=== PATIENT | female | born 1940 | race African-American/Black ===

== ENCOUNTER 2016-05-30 16:59 | Emergency (ER) | payer OTHER ==
[2016-05-30 17:51] VITALS: BMI 28.8
--- NOTE | 2016-05-30 18:00 | PDOC ---
History of Present Illness - General History Source: Patient - History of Present Illness Initial Comments: 05/30/16 18:44 Patient is a 75-year-old female past medical history of hypertension, asthma, chronic right shoulder pain, pacemaker, presenting to the ED today complaining of dizziness and feeling like the room is spinning. Patient states that this began 2 days ago. She feels worse at night lying down. Nothing makes the dizziness better. She's tried taking meclizine at home with minimal relief. Patient states that she also has had cold-like symptoms the past week. Admits to runny nose cough congestion, nausea and ear fullness. Patient denies headache , lightheadedness, numbness and tingling. Triage patient states that her pulse and blood pressure elevated. Her blood pressure is currently 154/112 and her pulse rate is 114. She states she does have a history of hypertension and her usual blood pressure is 130/80. Patient states she had her flu shot this year. Patient denies chest pain palpitations vomiting diarrhea. <Kim Pendleton - Last Filed: 05/30/16 18:53> <Carrol Shepherd - Last Filed: 05/30/16 23:36> - General Chief Complaint: Lightheaded Stated Complaint: DIZZINESS Time Seen by Provider: 05/30/16 17:31 Past History - Past Medical History Cancer: Yes (right breast) Cardiac Disorders: Yes CVA: No Dementia: No Diabetes: Yes GI Disorders: No Disorders: No HTN: Yes Hypercholesterolemia: Yes Liver Disease: No Seizures: No Thyroid Disease: No - Surgical History Cardiac Surgery: Yes (pacemaker) - Immunization History Td Vaccination: No TDAP Vaccination: No Immunization Up to Date: Yes - Psycho/Social/Smoking Cessation Hx Anxiety: No Suicidal Ideation: No Smoking History: Never smoked Have you smoked in the past 12 months: No Hx Alcohol Use: No Drug/Substance Use Hx: No Substance Use Type: None Hx Substance Use Treatment: No <Kim Pendleton - Last Filed: 05/30/16 18:53> <Carrol Shepherd - Last Filed: 05/30/16 23:36> - Past Medical History Allergies/Adverse Reactions: Allergies Allergy/AdvReac Type Severity Reaction Status Date / Time No Known Drug Allergies Allergy Verified 05/30/16 17:31 Home Medications: Ambulatory Orders Montelukast Na [Singulair -] 10 mg PO HS 03/07/15 Simvastatin [Zocor -] 20 mg PO HS 03/07/15 Hydralazine HCl [Apresoline -] 10 mg PO TID #90 tablet 03/09/15 Nifedipine ER [Procardia XL -] 90 mg PO DAILY tab.er.24 03/09/15 Anastrozole [Arimidex -] 1 mg PO DAILY 05/30/16 Aspirin [ASA -] 81 mg PO DAILY 05/30/16 Calcium Carbonate/Vitamin D3 [Calcium 500 + Vit D Caplet] 1 each PO DAILY *Physical Exam - Vital Signs Last Vital Signs Temp Pulse Resp BP Pulse Ox 97.9 F 119 H 18 154/112 99 05/30/16 17:32 05/30/16 17:32 05/30/16 17:32 05/30/16 17:32 05/30/16 17:32 - Physical Exam Comments: 05/30/16 18:41 GENERAL: Well developed, well nourished. Awake and alert. No acute distress. HEENT: Normocephalic, atraumatic. PERRLA, EOMI. No conjunctival pallor. Sclera are non- icteric. Moist mucous membranes. Nasal congestion present with green mucous. Oropharynx is clear. Ajvier-Halpike subtlety noted on the left. Pt. feels more dizzy when she sits up after exam. NECK: Supple. Full ROM. No JVD. Carotid pulses 2+ and symmetric, without bruits. No thyromegaly. No lymphadenopathy. CARDIOVASCULAR: Pt. is tachycardic on exam. Regular rhythm. No murmurs, rubs, or gallops. Distal pulses are 2+ and symmetric. PULMONARY: No evidence of respiratory distress. Lungs clear to auscultation bilaterally. No wheezing, rales or rhonchi. ABDOMINAL: Soft. Non-tender. Non-distended. No rebound or guarding. No organomegaly. Normoactive bowel sounds. MUSCULOSKELETAL Normal range of motion at all joints. No bony deformities or tenderness. No CVA tenderness. EXTREMITIES: No cyanosis. No clubbing. No edema. No calf tenderness. SKIN: Warm and dry. Normal capillary refill. No rashes. No jaundice. NEUROLOGICAL: Alert, awake, appropriate. Cranial nerves 2-12 intact. No deficits to light touch and temperature in face, upper extremities and lower extremities. No motor deficits in the in face, upper extremities and lower extremities. Normoreflexic in the upper and lower extremities. Normal speech. Toes are down- going bilaterally. Gait is normal without ataxia. PSYCHIATRIC: Cooperative. Good eye contact. Appropriate mood and affect. <Kim Pendleton - Last Filed: 05/30/16 18:53> - Vital Signs Last Vital Signs Temp Pulse Resp BP Pulse Ox 98.0 F 91 H 19 163/85 100 05/30/16 23:09 05/30/16 23:09 05/30/16 23:09 05/30/16 23:09 05/30/16 23:09 <Carrol Shepherd - Last Filed: 05/30/16 23:36> ED Treatment Course - LABORATORY CBC & Chemistry Diagram: 05/30/16 18:46 05/30/16 18:46 - ADDITIONAL ORDERS Additional order review: Laboratory Results 05/30/16 05/30/16 05/30/16 18:46 18:46 18:46 Sodium 142 Potassium 4.1 Chloride 106 Carbon Dioxide 28 Anion Gap 8 BUN 12 Creatinine 1.0 Creat Clearance w eGFR 54.20 Random Glucose 94 Calcium 10.2 H Total Bilirubin 0.4 AST 19 ALT 20 Alkaline Phosphatase 140 H Creatine Kinase 57 Troponin I < 0.02 Total Protein 8.0 Albumin 4.0 Urine Color Lt. yellow Urine Appearance Clear Urine pH 7.0 Ur Specific [place] 1.010 Urine Protein Negative Urine Glucose (UA) Negative Urine Ketones Negative Urine Blood 1 H Urine Nitrite Negative Urine Bilirubin Negative Urine Urobilinogen 0.2 e.u/dl Ur Leukocyte Esterase Negative 05/30/16 18:46 RBC 4.75 MCV 86.8 MCHC 33.6 RDW 14.2 MPV 8.4 Neutrophils % 59.7 Lymphocytes % 31.7 Monocytes % 7.2 Eosinophils % 0.5 Basophils % 0.9 - RADIOLOGY Radiology Studies Ordered: Category Date Time Status HEAD CT WITHOUT CONTRAST [CT] Stat CT Scan 05/30/16 20:19 Completed - Medications Given in the ED: ED Medications Discontinued Medications Generic Name Dose Route Start Last Admin Trade Name Freq PRN Reason Stop Dose Admin Sodium Chloride 1,000 mls @ 1,000 mls/hr 05/30/16 18:39 05/30/16 19:03 Normal Saline - IV 05/30/16 19:38 1,000 mls/hr ASDIR STA Administration Meclizine HCl 25 mg 05/30/16 18:16 05/30/16 19:03 Antivert - PO 05/30/16 18:17 25 mg ONCE ONE Administration Ondansetron HCl 4 mg 05/30/16 18:51 05/30/16 19:03 Zofran Injection IVPUSH 05/30/16 18:52 4 mg ONCE ONE Administration <Carrol Shepherd D - Last Filed: 05/30/16 23:36> Medical Decision Making - Medical Decision Making 05/30/16 18:47 Patient is a 75-year-old female past medical history of hypertension, asthma, chronic right shoulder pain, pacemaker, presenting to the ED today with dizziness 2 days given patient's description of the symptoms it sounds that it is most likely vertigo. However given her complex medical history we will do full workup to rule out cardiac cause, infection, dehydration. We'll have her pacemaker interrogated at this time. First page out to [employer] Will also medicate for the dizziness with meclizine and Zofran. We'll start fluids her symptomatically relief. Reevaluate 1. CBC, CMP, for infection, hydration status 2. EKG, Troponins and Pacemaker interrogation to r/o cardiac origin. 3. Will give fludis, meclizine and zofran at this time for symptomatic relief. 4. Will re-evaluate. 05/30/16 18:53 Sign out given to Carrol Shepherd. Discussed pt. vitals and pt is stable at this time resting comfortably. Discussed the case. Labs are still pending with EKG. Waiting precision lens generator for [employer] for pacemaker interrogation. Must wait until pacemaker is interrogated before dispo. Symptomatic relief given, zofran and meclizine <Kim Pendleton - Last Filed: 05/30/16 18:53> - Medical Decision Making 05/30/16 23:34 HEAD-CT: WNL URINALYSIS: WNL D/C PATIENT TO HOME. <Carrol Shepherd - Last Filed: 05/30/16 23:36> *DC/Admit/Observation/Transfer <Kim Pendleton - Last Filed: 05/30/16 18:53> - Discharge Dispostion Admit: No <Carrol Shepherd - Last Filed: 05/30/16 23:36> Diagnosis at time of Disposition: Vertigo - Discharge Dispostion Disposition: HOME Condition at time of disposition: Stable - Patient Instructions Printed Discharge Instructions: DI for Vertigo, Vertigo (Alternative Therapy) Additional Instructions: FOLLOW UP WITH DR. RIVERA. CALL TO SCHEDULE APPOINTMENT. CONTINUE TAKING YOUR MEDICATIONS PRESCRIBED. RETURN IF SYMPTOMS WORSEN, OR ANY CONCERNS FOR FURTHER EVALUATION. Print Language: VIETNAMESE
[2016-05-30] MEDS ORDERED: MECLIZINE HCL 25 MG TABLET (FP) PO ONE (18:16)
[2016-05-30] MEDS ORDERED: ONDANSETRON *ODT* 4 MG TABLET SL ONE (18:16)
[2016-05-30] MEDS ORDERED: SODIUM CHLORIDE 1,000 ML IV STA (18:39)
[2016-05-30] MEDS ORDERED: ONDANSETRON 4 MG/2 ML VIAL ONE (18:48)
[2016-05-30] MEDS ORDERED: MECLIZINE HCL 25 MG TABLET (FP) ONE (18:48)
[2016-05-30] MEDS ORDERED: ONDANSETRON 4 MG/2 ML VIAL IVPUSH ONE (18:51)
[2016-05-30 19:28] LABS: BASOPHIL 0.9 % (0-2.0); EOSINOPHIL 0.5 % (0-4.5); MCH 29.2 pg (25.7-33.7); MCHC 33.6 g/dl (32.0-36.0); MEAN CELL VOLUME 86.8 fl (80-96); MEAN PLT VOLUME 8.4 fl (7.5-11.1); NEUTROPHILS 59.7 % (42.8-82.8); PLATELET COUNT 310 K/MM3 (134-434); RDW 14.2 % (11.6-15.6); WHITE BLOOD COUNT 6.8 K/mm3 (4.0-10.0)
[2016-05-30 19:45] LABS: BILIRUBIN,TOTAL 0.4 mg/dL (0.2-1.0); CALCIUM 10.2 mg/dL (8.5-10.1)
[2016-05-30 19:46] LABS: TROPONIN I < 0.02 ng/ml (0.00-0.05)
--- NOTE | 2016-05-30 21:11 | PDOC ---
[id number] 154/112 99 05/30/16 17:32 05/30/16 17:32 05/30/16 17:32 05/30/16 17:32 05/30/16 17:32 Heart Score/ECG Review #1 ECG reviewed & interpreted by me at: 17:45 05/30/16 20:59 NSR 101, 1st degree AV block, LVH, Q wave III, aVF, no std/mickey, QTC 440 msec ED Treatment Course - LABORATORY CBC & Chemistry Diagram: 05/30/16 18:46 05/30/16 18:46 - ADDITIONAL ORDERS Additional order review: Laboratory Results 05/30/16 05/30/16 18:46 18:46 Sodium 142 Potassium 4.1 Chloride 106 Carbon Dioxide 28 Anion Gap 8 BUN 12 Creatinine 1.0 Creat Clearance w eGFR 54.20 Random Glucose 94 Calcium 10.2 H Total Bilirubin 0.4 AST 19 ALT 20 Alkaline Phosphatase 140 H Creatine Kinase 57 Troponin I < 0.02 Total Protein 8.0 Albumin 4.0 05/30/16 18:46 RBC 4.75 MCV 86.8 MCHC 33.6 RDW 14.2 MPV 8.4 Neutrophils % 59.7 Lymphocytes % 31.7 Monocytes % 7.2 Eosinophils % 0.5 Basophils % 0.9 - Medications Given in the ED: ED Medications Discontinued Medications Generic Name Dose Route Start Last Admin Trade Name Freq PRN Reason Stop Dose Admin Sodium Chloride 1,000 mls @ 1,000 mls/hr 05/30/16 18:39 05/30/16 19:03 Normal Saline - IV 05/30/16 19:38 1,000 mls/hr ASDIR STA Administration Meclizine HCl 25 mg 05/30/16 18:16 05/30/16 19:03 Antivert - PO 05/30/16 18:17 25 mg ONCE ONE Administration Ondansetron HCl 4 mg 05/30/16 18:51 05/30/16 19:03 Zofran Injection IVPUSH 05/30/16 18:52 4 mg ONCE ONE Administration Medical Decision Making - Medical Decision Making 05/30/16 20:59 Pt seen by the Advanced Practice Provider under my direct supervision Pt interviewed and examined Ancillary studies reviewed I agree with plan as outlined by the Advanced Practice Provider ODALIS Pendleton This is a 75-year-old female with history of hypertension, pacemaker presents to the emergency department for dizziness. Patient reports the last several days of having upper respiratory infection-like symptoms which is now improved. However, 3 days ago, patient does report feeling somewhat lightheaded and dizzy upon standing up. Denies any chest pain or shortness of breath or palpitations. Denies any dysuria, fevers or sick contacts. Patient reports that she feels like this is somewhat like her vertigo. Given cardiac history, will observe on manager cardiac cath. ECG is stable and unchanged. I suspect that this is probably less cardiac in etiology, but will send labs including trop. Perhaps this may be more dehydration from her recent URI. Will give IVF and meclizine and reassess. Will also send a UA. If the workup is unremarkable, the patient may be discharged with PMD follow up. 05/30/16 21:21 When I had seen the patient initially earlier approximately 4 hours ago, the patient was feeling lightheaded. After the IVF and meds, the patient reports feeling complete relief. *DC/Admit/Observation/Transfer Diagnosis at time of Disposition: Vertigo - Discharge Dispostion Disposition: HOME Condition at time of disposition: Stable - Prescriptions Prescriptions: Meclizine HCl [Antivert -] 25 mg PO BID PRN #30 tablet PRN Reason: Vertigo - Referrals Referrals: Carlos Eduardo Concepcion MD [Primary Care Provider] - - Patient Instructions Printed Discharge Instructions: Vertigo (Alternative Therapy), DI for Vertigo Additional Instructions: FOLLOW UP WITH DR. CONCEPCION. CALL TO SCHEDULE APPOINTMENT. CONTINUE TAKING YOUR MEDICATIONS PRESCRIBED. RETURN IF SYMPTOMS WORSEN, OR ANY CONCERNS FOR FURTHER EVALUATION. Print Language: PUERTO RICAN
[2016-05-30 23:10] VITALS: BP 163/85; PULSE 91; TEMP 98
[2016-05-30 23:13] LABS: URINE APPEARANCE CLEAR; URINE BILIRUBIN NEGATIVE (NEGATIVE); URINE BLOOD 1 (NEGATIVE); URINE COLOR LT. YELLOW; URINE GLUCOSE (UA) NEGATIVE (NEGATIVE); URINE KETONE NEGATIVE (NEGATIVE); URINE LEUK ESTERASE NEGATIVE (NEGATIVE); URINE NITRITE NEGATIVE (NEGATIVE); URINE PROTEIN NEGATIVE (NEGATIVE); URINE UROBILINOGEN 0.2 E.U/dl E.U./dl (0.2-1.0)
[2016-05-31 00:09] LABS: URINE RBC 1 /hpf (0-3); URINE WBC 1 /hpf (3-5)
--- NOTE | 2016-05-31 16:08 | EKG ---
Test Reason : Blood Pressure : / mmHG Vent. Rate : 101 BPM Atrial Rate : 101 BPM P-R Int : 202 ms QRS Dur : 084 ms QT Int : 340 ms P-R-T Axes : 057 004 019 degrees QTc Int : 440 ms SINUS TACHYCARDIA BIATRIAL ENLARGEMENT LEFT VENTRICULAR HYPERTROPHY INFERIOR INFARCT (CITED ON OR BEFORE 16-JUN-2013) ABNORMAL ECG WHEN COMPARED WITH ECG OF 19-JAN-2016 09:26, NO SIGNIFICANT CHANGE WAS FOUND Confirmed by TALAT WILLARD MD ([id number]) on 05/31/2016 4:08:11 PM Referred By: Confirmed By:TALAT WILLARD MD
== END 2016-05-31 | disposition home or self-care (01) ==
LOC: JER 16:59
PROC: 3E033GC Introduction of Other Therapeutic Substance into Peripheral Vein, Percutaneous Approach (ICD-10-PCS; principal; 2016-05-30)
PROC: 3E0337Z Introduction of Electrolytic and Water Balance Substance into Peripheral Vein, Percutaneous Approach (ICD-10-PCS; 2016-05-30)
DX: R42 Dizziness and giddiness (principal); Z95.0 Presence of cardiac pacemaker; I10 Essential (primary) hypertension; J45.909 Unspecified asthma, uncomplicated; G89.29 Other chronic pain
CPT/HCPCS: 36415; 70450-TC; 80053; 81003; 81015; 82550; 84484; 85025; 87086; 93005; 93010; 96361; 96374; 99284-25

== ENCOUNTER → 2018-10-02 | Day surgery (SDC) | payer OTHER ==
--- NOTE | 2018-10-03 14:00 | PATH ---
Cytology Non-Gynecological Report Patient Name: JOEL RICE Med. Rec. #: [id number] /Age/Gender: 1940 (Age: 78) / F Account: [id number] Location: RADIOLOGY INTER Taken: 10/02/2018 Received: 10/03/2018 Reported: 10/03/2018 Physicians: Renu Lane M.D. Specimen(s) Received THYROID FNA Clinical History Left lobe, 1.43 x 1.05 x 0.59 Final Diagnosis THYROID, LEFT LOBE, FINE NEEDLE ASPIRATION: SATISFACTORY FOR EVALUATION. BETHESDA III: ATYPIA OF UNDERTERMINED SIGNIFICANCE/FOLLICULAR LESION OF UNDETERMINED SIGNIFICANCE. ATYPICAL FOLLICULAR CELLS WITH MILD NUCLEAR ENLARGEMENT AND FOCAL CROWDING, DISPERSED RARE SMALL FRAGMENTS AND FEW MICROFOLLICLES IN HEMORRHAGIC BACKGROUND. Comment: Suggest clinical/radiologic correlation and repeat sampling after an appropriate interval (3-6 months) with material for molecular studies (Thyroseq), as clinically warranted. Electronically Signed Afia Arguelles M.D. Gross Description Received are eight direct smears, four of which are air-dried and Diff-Quik stained, and four of which are alcohol fixed and Pap stained. Also received is 30 ml of bloody formalin from which one cellblock is prepared.
== END | disposition home or self-care (01) ==
LOC: JRADIR 08:41
PROVIDERS: ATTEND Family Medicine
PROC: 0G9K3ZX Drainage of Thyroid Gland, Percutaneous Approach, Diagnostic (ICD-10-PCS; principal; 2018-10-02)
DX: E04.1 Nontoxic single thyroid nodule (principal)
CPT/HCPCS: 76942; 88173; 88305-TC

== ENCOUNTER 2019-03-17 15:09 | Observation (INO) | payer OTHER ==
--- NOTE | 2019-03-17 15:42 | PDOC ---
History of Present Illness - General Chief Complaint: Chest Pain Stated Complaint: CHEST PAIN Time Seen by Provider: 03/17/19 15:42 History Source: Patient Exam Limitations: No Limitations - History of Present Illness Initial Comments: 03/17/19 16:44 Jammie Muro is a 78yF w PMHx HTN, HLD, pacemaker ([employer]) presenting w L chest pain. Last night, noted sudden onset 1 sec L breast pain while laying down. 2 episodes yesterday, 4 episodes today. Has never been shocked before, unsure if pain is d/t pacemaker shock. Follows regularly w Dr Gallego cardiology. Takes daily aspirin. Denies recent travel. Denies fever , headache, nausea/vomiting, SOB, cough, AB pain, urinary/bowel movement changes , LE edema. Past History - Past Medical History Allergies/Adverse Reactions: Allergies Allergy/AdvReac Type Severity Reaction Status Date / Time No Known Drug Allergies Allergy Verified 03/17/19 15:25 Home Medications: Ambulatory Orders Montelukast Na [Singulair -] 10 mg PO HS 03/07/15 Simvastatin [Zocor -] 20 mg PO HS 03/07/15 Nifedipine ER [Procardia XL -] 90 mg PO DAILY tab.er.24 03/09/15 hydrALAZINE HCL [Apresoline -] 10 mg PO TID #90 tablet 03/09/15 Anastrozole [Arimidex -] 1 mg PO DAILY 05/30/16 Aspirin [ASA -] 81 mg PO DAILY 05/30/16 Calcium Carbonate/Vitamin D3 [Calcium 500 + Vit D Caplet] 1 each PO DAILY Cancer: Yes (right breast) Cardiac Disorders: Yes CVA: No COPD: No Dementia: No Diabetes: Yes GI Disorders: No Disorders: No HTN: Yes Hypercholesterolemia: Yes Liver Disease: No Seizures: No Thyroid Disease: No - Surgical History Cardiac Surgery: Yes (pacemaker) - Immunization History Td Vaccination: No TDAP Vaccination: No Immunization Up to Date: Yes - Psycho Social/Smoking Cessation Hx Smoking History: Unknown if ever smoked Have you smoked in the past 12 months: No Hx Alcohol Use: No Drug/Substance Use Hx: No Substance Use Type: None Hx Substance Use Treatment: No Cardiac Specific PMH - Complaint Specific PMHX Pacemaker: Yes (2014) Review of Systems - Review of Systems Constitutional: No: Chills, Fever HEENTM: No: Eye Pain, Nose Pain, Throat Pain, Mouth Pain Respiratory: No: Cough, Shortness of Breath Cardiac (ROS): Yes: Chest Pain. No: Palpitations, Syncope ABD/GI: No: Abdominal Distended, Constipated, Diarrhea, Nausea, Vomiting : No: Burning, Dysuria, Discharge, Frequency, Flank Pain, Hematuria Musculoskeletal: No: Back Pain, Joint Pain, Joint Swelling, Muscle Pain Integumentary: No: Bruising, Dryness, Erythema Neurological: No: Headache, Numbness, Seizure, Tingling, Tremors Psychiatric: No: Anxiety, Depression, Stressors Endocrine: No: Excessive Sweating, Flushing, Intolerance to Cold, Intolerance to Heat Hematologic/Lymphatic: No: Anemia, Blood Clots *Physical Exam - Vital Signs Last Vital Signs Temp Pulse Resp BP Pulse Ox 97.8 F 98 H 18 153/90 99 03/18/19 09:00 03/18/19 09:00 03/18/19 09:00 03/18/19 09:00 03/18/19 12:00 - Physical Exam General Appearance: Yes: Nourished, Appropriately Dressed HEENT: positive: EOMI, RAMY, Normal Voice, Hearing Grossly Normal. negative: Scleral Icterus (R), Scleral Icterus (L), Nasal Congestion, Rhinorrhea Respiratory/Chest: positive: Lungs Clear, Normal Breath Sounds. negative: Chest Tender, Respiratory Distress, Accessory Muscle Use, Labored Respiration, Crackles, Rales, Rhonchi, Stridor, Wheezing Cardiovascular: positive: Regular Rate, S1, S2, Tachycardia. negative: Edema, Murmur Integumentary: positive: Normal Color. negative: Swelling (no BLE edema) Neurologic: positive: head of digital II-XII NML intact, Fully Oriented, Alert, Normal Mood/ Affect, Normal Response, Motor Strength 5/5, Responsive. negative: Numbness, Sensory Deficit, Confused, Disoriented Heart Score/ECG Review - History History: Slightly suspicious - Electrocardiogram EKG: Normal - Age Age: >/= 65 - Risk Factors Risk Factors Heart Score: Yes Hx Hypercholesterolemia, Yes Hx Hypertension, No Hx Diabetes, No Smoking History, No Positive family hx of cardiac disease, No Hx Obesity Based on the list above the patient has:: 1-2 risk factors - Troponin Troponin: </= normal limit - Score Heart Score - Total: 3 ED Treatment Course - LABORATORY CBC & Chemistry Diagram: 03/18/19 05:41 03/18/19 05:41 - ADDITIONAL ORDERS Additional order review: 03/17/19 16:10 RBC 4.62 MCV 85.0 MCHC 34.4 RDW 14.1 MPV 8.4 Neutrophils % 66.7 Lymphocytes % 22.5 D Monocytes % 9.4 Eosinophils % 0.6 Basophils % 0.8 - RADIOLOGY Radiology Studies Ordered: Category Date Time Status CXRPORT [CHEST X-RAY PORTABLE*] [RAD] Stat Radiology 03/17/19 16:06 Completed - Medications Given in the ED: ED Medications Discontinued Medications Generic Name Dose Route Start Last Admin Trade Name Freq PRN Reason Stop Dose Admin Anastrozole 1 mg 03/18/19 10:00 03/18/19 10:52 Arimidex - PO 1 mg DAILY LINDA Administration Aspirin 162 mg 03/17/19 17:21 03/17/19 17:38 Asa - PO 03/17/19 17:22 162 mg ONCE ONE Administration Aspirin 81 mg 03/18/19 10:00 03/18/19 09:43 Asa - PO 81 mg DAILY LINDA Administration Atorvastatin Calcium 10 mg 03/17/19 22:00 03/17/19 21:17 Lipitor - PO 10 mg HS LINDA Administration Diphenhydramine HCl 25 mg 03/17/19 21:10 03/17/19 21:18 Benadryl - PO 03/17/19 21:11 25 mg ONCE ONE Administration Hydralazine HCl 10 mg 03/17/19 22:00 03/18/19 14:04 Apresoline - PO 10 mg TID LINDA Administration Montelukast Sodium 10 mg 03/17/19 22:00 03/17/19 22:29 Singulair - PO 10 mg HS LINDA Administration Nifedipine 90 mg 03/18/19 10:00 03/18/19 09:43 Procardia Xl - PO 90 mg DAILY LINDA Administration Potassium Chloride 40 meq 03/18/19 11:00 03/18/19 14:04 K-Dur - PO 03/18/19 11:01 40 meq ONCE ONE Administration Medical Decision Making - Medical Decision Making 03/17/19 16:19 CBC CMP trop CXR shows clear lung carey, pacemaker in place EKG showed tachycardia, 1st degree AV block, LVH, HR 107, QTc 453, no ST changes [employer] device interrogated. Showed no recorded events and 0% pacing over last 72hrs, no pacing from Nov 27 to Mar 17 (today), normal device functioning. CBC CMP normal, trop neg --- Jammie Muro is a 78yF w PMHx HTN, HLD, pacemaker ([employer]) presenting w L chest pain likely d/t MSK strain. Low concern for ACS (neg trop) vs PNA (clear lung carey, afebrile, no cough) vs pacemaker shock (normal device interrogation check). Given 162 aspirin. Admitted to tele/obvs for chest pain at rest / ACS rule out in setting of complex cardiac hx, pacemaker Discharge - Discharge Information Problems reviewed: Yes Clinical Impression/Diagnosis: Chest pain at rest Condition: Stable Disposition: HOME - Follow up/Referral - Patient Discharge Instructions - Post Discharge Activity
[2019-03-17 16:34] LABS: BASO % 0.8 % (0-2.0); EOS % 0.6 % (0-4.5); HEMATOCRIT 39.2 % (32.4-45.2); HEMOGLOBIN 13.5 GM/dL (10.7-15.3); LYMPH % 22.5 % (8-40); MCH 29.3 pg (25.7-33.7); MCHC 34.4 g/dl (32.0-36.0); MEAN PLT VOLUME 8.4 fl (7.5-11.1); MONO % 9.4 % (3.8-10.2); NEUT % 66.7 % (42.8-82.8); PLATELET COUNT 353 K/MM3 (134-434); RBC 4.62 M/mm3 (3.60-5.2); RDW 14.1 % (11.6-15.6); WHITE BLOOD COUNT 7.7 K/mm3 (4.0-10.0)
[2019-03-17 17:09] LABS: BILIRUBIN,TOTAL 0.3 mg/dL (0.2-1); BLOOD UREA NITROGEN 25.1 mg/dL (7-18); CALCIUM 11.3 mg/dL (8.5-10.1); CREATININE 1.1 mg/dL (0.55-1.3); POTASSIUM 3.8 mmol/L (3.5-5.1); TOT PROT 8.4 g/dl (6.4-8.2)
[2019-03-17] MEDS ORDERED: ASPIRIN 81 MG CHEWABLE TABLETS PO ONE (17:21)
[2019-03-17] MEDS ORDERED: ASPIRIN 81 MG CHEWABLE TABLETS ONE (17:33)
--- NOTE | 2019-03-17 18:29 | PDOC ---
Documentation entered by Jeramy Paredes SCRIBE, acting as scribe for Betzy Donaldson MD. Betzy Donaldson MD: This documentation has been prepared by the Reggie munson Xhesika, SCRIBE, under my direction and personally reviewed by me in its entirety. I confirm that the documentation accurately reflects all work, treatment, procedures, and medical decision making performed by me. Attending Attestation - Resident Resident Name: Corey Mathew - ED Attending Attestation I have performed the following: I have examined & evaluated the patient, The case was reviewed & discussed with the resident, I agree w/resident's findings & plan, Exceptions are as noted - HPI HPI: 03/17/19 17:19 The patient is a 78 year old female with a significant PMH of HTN, HLD, pacemaker ([employer]) who presents to the emergency department for intermittent, sharp L sided chest pain, described as pinching sensation that started yesterday at rest. Pt reports 3 episodes of nausea without vomiting yesterday that has since resolved. Pt reports 1 week of congestion. The patient denies palpitations, shortness of breath, headache and dizziness. Denies fever, chills, cough, vomiting, diarrhea and constipation. Denies dysuria, frequency, urgency and hematuria. Allergies: NKDA PCP: Dr. Almodovar Cards: - Physicial Exam PE: 03/17/19 18:27 78-year-old female presents after 1 day of left-sided chest pain Well nourished well-developed alert 78-year-old female in no acute distress Head normocephalic atraumatic Neck is supple with no bruits or JVD appreciated Lungs are clear to auscultation bilaterally CVS regular rate and rhythm S1-S2 Abdomen nontender Skin warm and dry Lower extremities no edema Neuro alert and oriented x3, no focal neuro deficits - Medical Decision Making 03/17/19 18:29 Negative troponin Chest x-ray no acute pulmonary disease CBC chemistries are essentially within normal limits Telemetry OBS admission for chest pain Using the [employer] kit in the emergency department her pacemaker was interrogated and no significant abnormalities were found
--- NOTE | 2019-03-17 19:13 | CON.CARD ---
Consult Consult Specialty:: Cardiology Reason for Consultation:: chest pain - History of Present Illness History of Present Illness: The patient is a 78 year old female with a significant PMH of HTN, HLD, pacemaker ([employer]) who presents to the emergency department for intermittent, sharp L sided chest pain, described as pinching sensation that started yesterday at rest. Pt reports 3 episodes of nausea without vomiting yesterday that has since resolved. Pt reports 1 week of congestion. The patient denies palpitations, shortness of breath, headache and dizziness. Denies fever, chills, cough, vomiting, diarrhea and constipation. Denies dysuria, frequency, urgency and hematuria. Allergies: NKDA PCP: Dr. Almodovar Cards: Past medical history Major events No major events recorded Ongoing medical problems Hyperlipidemia Hypertension PPM DDD [employer] 2014 Dr. Jensen pulmonic regurgitation (ECHO 05/12/2014: normal LVEF; moderate [place]) Right Breast CA symptomatic junctional bradycardia 8 seconds pause more than 24 hrs after last dose of atenolol [address] September 2018 - no ischemia - History Source History Provided By: Patient, Medical Record - Past Medical History Cardio/Vascular: Yes: HTN, Hyperlipdemia. No: AFIB, Aneurysm, Aortic Insufficiency, Aortic Stenosis, CAD, CHF, Deep Vein Thrombosis, [place], Mitral Insufficiency, Mitral Stenosis, Murmur, Pulmonary Hypertension, Other - Alcohol/Substance Use Hx Alcohol Use: No - Smoking History Smoking history: Unknown if ever smoked Have you smoked in the past 12 months: No Home Medications - Allergies Allergies/Adverse Reactions: Allergies Allergy/AdvReac Type Severity Reaction Status Date / Time No Known Drug Allergies Allergy Verified 03/17/19 15:25 - Home Medications Home Medications: Ambulatory Orders Montelukast Na [Singulair -] 10 mg PO HS 03/07/15 Simvastatin [Zocor -] 20 mg PO HS 03/07/15 Nifedipine ER [Procardia XL -] 90 mg PO DAILY tab.er.24 03/09/15 hydrALAZINE HCL [Apresoline -] 10 mg PO TID #90 tablet 03/09/15 Anastrozole [Arimidex -] 1 mg PO DAILY 05/30/16 Aspirin [ASA -] 81 mg PO DAILY 05/30/16 Calcium Carbonate/Vitamin D3 [Calcium 500 + Vit D Caplet] 1 each PO DAILY Review of Systems - Review of Systems Constitutional: reports: No Symptoms Eyes: reports: No Symptoms HENT: reports: No Symptoms Neck: reports: No Symptoms Cardiovascular: reports: Chest Pain Respiratory: reports: No Symptoms Gastrointestinal: reports: No Symptoms Genitourinary: reports: No Symptoms Breasts: reports: No Symptoms Reported Musculoskeletal: reports: No Symptoms Integumentary: reports: No Symptoms Neurological: reports: No Symptoms Endocrine: reports: No Symptoms Hematology/Lymphatic: reports: No Symptoms Psychiatric: reports: No Symptoms Vital Signs: Vital Signs Temperature 98.5 F 03/17/19 15:28 Pulse Rate 111 H 03/17/19 15:30 Respiratory Rate 18 03/17/19 15:30 Blood Pressure 148/100 03/17/19 15:30 O2 Sat by Pulse Oximetry (%) 99 03/17/19 15:30 Constitutional: Yes: Well Nourished, No Distress, Calm Eyes: Yes: WNL, Conjunctiva Clear, EOM Intact HENT: Yes: WNL, Atraumatic, Normocephalic Neck: Yes: WNL, Supple, Trachea Midline Respiratory: Yes: WNL, Regular, CTA Bilaterally Gastrointestinal: Yes: WNL, Normal Bowel Sounds Renal/: Yes: WNL Cardiovascular: Yes: WNL, Regular Rate and Rhythm Musculoskeletal: Yes: WNL Extremities: Yes: WNL Integumentary: Yes: WNL Neurological: Yes: WNL, Alert, Oriented ...Motor Strength: WNL Psychiatric: Yes: WNL, Alert, Oriented - Other Data Labs, Other Data: CBC, BMP 03/17/19 16:10 03/17/19 16:10 Troponin, BNP 03/17/19 16:10 Troponin I < 0.02 Troponin, BNP 03/17/19 16:10 Troponin I < 0.02 Imaging - Results Chest X-ray: Image Reviewed (no i/e) EKG: Image Reviewed (sr rep abn) Problem List - Problems (1) Acute kidney failure Code(s): N17.9 - ACUTE KIDNEY FAILURE, UNSPECIFIED (2) Arthritis Code(s): M19.90 - UNSPECIFIED OSTEOARTHRITIS, UNSPECIFIED SITE (3) Bone spur Code(s): M77.9 - ENTHESOPATHY, UNSPECIFIED (4) Dizziness Code(s): R42 - DIZZINESS AND GIDDINESS (5) HTN (hypertension) Code(s): I10 - ESSENTIAL (PRIMARY) HYPERTENSION (6) Hyperglycemia Code(s): R73.9 - HYPERGLYCEMIA, UNSPECIFIED (7) Hyperlipidemia Code(s): E78.5 - HYPERLIPIDEMIA, UNSPECIFIED (8) Junctional bradycardia Code(s): R00.1 - BRADYCARDIA, UNSPECIFIED (9) Shoulder pain, right Code(s): M25.511 - PAIN IN RIGHT SHOULDER Qualifiers: Chronicity: chronic Qualified Code(s): M25.511 - Pain in right shoulder; G89.29 - Other chronic pain (10) Vertigo Code(s): R42 - DIZZINESS AND GIDDINESS Assessment/Plan HTN, HLD, pacemaker ([employer]) who presents to the emergency department for intermittent, sharp L sided chest pain, described as pinching sensation Plan r/o mi echo telemetry
--- NOTE | 2019-03-17 20:09 | HP ---
CHIEF COMPLAINT: intermittent chest pain since yesterday PCP:Dr. Carrasco Cigarette Stamper: Dr. Doss HISTORY OF PRESENT ILLNESS: Mr. Muro is a 78 year old female with a significant past medical history of hypertension, hyperlipidemia, pacemaker placement in 2015 ([employer]) for bradycardia and right breast lumpectomy (on hormonal therapy) in 2016 who presents to the emergency department with intermittent left sided chest pain, described as pinching sensation that started yesterday at rest. Patient reported nausea without vomiting that has resolved. She reports she had ongoing intermittent chest pain today lasting a few seconds while she was sitting and decided to come in for an evaluation. Patient denied radiation to her left arm, jaw, neck, shoulder, palpitations, shortness of breath, back pain, headache or dizziness. Patient denied recent travel. Upon evaluation systolic blood pressure is elevated in the 160's and she is tachycardic with heart rate in the 100's . Labs noted for a normal troponin. CXR unremarkable. Calcium level 11.3. D-Dimer 992 EKG- sinus tachycardia, LVH, no acute ST elevations or T wave inversions Cardiac History: [employer] Pacemaker 2015 for bradycardia ECHO 05/12/2014: normal LVEF, moderate [place] [facility] September 2018 - no ischemia Recent Travel: denies PAST MEDICAL HISTORY: hypertension hyperlipidemia PAST SURGICAL HISTORY: right breast lumpectomy 2016 pacemaker placement 2014 Social History: Smoking:denies Alcohol:denies Drugs: denies Allergies No Known Drug Allergies Allergy (Verified 03/17/19 15:25) HOME MEDICATIONS: Home Medications Medication Instructions Recorded Montelukast Na [Singulair -] 10 mg PO HS 03/07/15 Simvastatin [Zocor -] 20 mg PO HS 03/07/15 Nifedipine ER [Procardia XL -] 90 mg PO DAILY tab.er.24 03/09/15 hydrALAZINE HCL [Apresoline -] 10 mg PO TID #90 tablet 03/09/15 Anastrozole [Arimidex -] 1 mg PO DAILY 05/30/16 Aspirin [ASA -] 81 mg PO DAILY 05/30/16 Calcium Carbonate/Vitamin D3 1 each PO DAILY 05/30/16 [Calcium 500 + Vit D Caplet] REVIEW OF SYSTEMS CONSTITUTIONAL: Absent: fever, chills, diaphoresis, generalized weakness, malaise, loss of appetite, weight change HEENT: Absent: rhinorrhea, nasal congestion, throat pain, throat swelling, difficulty swallowing, mouth swelling, ear pain, eye pain, visual changes CARDIOVASCULAR: Absent: chest pain, syncope, palpitations, irregular heart rate, lightheadedness , peripheral edema RESPIRATORY: Absent: cough, shortness of breath, dyspnea with exertion, orthopnea, wheezing, stridor, hemoptysis GASTROINTESTINAL: Absent: abdominal pain, abdominal distension, nausea, vomiting, diarrhea, constipation, melena, hematochezia GENITOURINARY: Absent: dysuria, frequency, urgency, hesitancy, hematuria, flank pain, genital pain MUSCULOSKELETAL: Absent: myalgia, arthralgia, joint swelling, back pain, neck pain SKIN: Absent: rash, itching, pallor HEMATOLOGIC/IMMUNOLOGIC: Absent: easy bleeding, easy bruising, lymphadenopathy, frequent infections ENDOCRINE: Absent: unexplained weight gain, unexplained weight loss, heat intolerance, cold intolerance NEUROLOGIC: Absent: headache, focal weakness or paresthesias, dizziness, unsteady gait, seizure, mental status changes, bladder or bowel incontinence PSYCHIATRIC: Absent: anxiety, depression, suicidal or homicidal ideation, hallucinations. PHYSICAL EXAMINATION Vital Signs - 24 hr 03/17/19 03/17/19 03/17/19 15:28 15:30 19:21 Temperature 98.5 F Pulse Rate 111 H Pulse Rate [ 111 H 103 H Apical] Respiratory 20 18 17 Rate Blood Pressure 155/85 Blood Pressure 148/100 161/93 [Right Arm] O2 Sat by Pulse 99 99 99 Oximetry (%) GENERAL: awake alert and fully oriented no acute distress HEAD: normal EYES: pupils equal round and reactive to light extraocular movements intact EARS, NOSE, THROAT: ears normal nares patent NECK: normal range of motion LUNGS: breath sounds equal clear to auscultation bilaterally no wheeze no crackles no accessory muscle use HEART: rate tachycardic and rhythm normal S1 and S2 ABDOMEN: soft nontender not distended normoactive bowel sounds MUSCULOSKELETAL: normal range of motion at all joints UPPER EXTREMITIES: 2+ pulses warm well-perfused LOWER EXTREMITIES: 2+ pulses warm on palpation minimal lower extremity edema present NEUROLOGICAL: no neuro focal deficits PSYCHIATRIC: cooperative good eye contact appropriate mood and affect SKIN: warm dry normal turgor no rashes or lesions noted normal capillary refill. Laboratory Results - last 24 hr 03/17/19 03/17/19 03/17/19 16:10 16:10 16:10 WBC 7.7 RBC 4.62 Hgb 13.5 Hct 39.2 MCV 85.0 MCH 29.3 MCHC 34.4 RDW 14.1 Plt Count 353 MPV 8.4 Absolute Neuts (auto) 5.2 Neutrophils % 66.7 Lymphocytes % 22.5 D Monocytes % 9.4 Eosinophils % 0.6 Basophils % 0.8 Nucleated RBC % 0 Sodium 137 Potassium 3.8 Chloride 101 Carbon Dioxide 27 Anion Gap 10 BUN 25.1 H Creatinine 1.1 Est GFR (CKD-EPI)AfAm 56.08 Est GFR (CKD-EPI)NonAf 48.39 Random Glucose 103 Calcium 11.3 H Total Bilirubin 0.3 AST 23 ALT 22 Alkaline Phosphatase 143 H Creatine Kinase 73 Troponin I < 0.02 Total Protein 8.4 H Albumin 4.0 ASSESSMENT/PLAN: 78 year old female with a significant past medical history of hypertension, hyperlipidemia, pacemaker placement in 2014 ([employer]) for bradycardia and right breast lumpectomy (on hormonal therapy) in 2015 who presented intermittent left sided chest pain. Patient being admitted to OBS to telemetry #1 Chest Pain R/O IA Workup w/normal troponin EKG- sinus tachycardia, LVH, no acute ST elevations, or T wave inversions SBP 160's, tachycardic with heart rate in the 100's . ECHO 05/12/2014- normal LVEF, moderate [place] [facility] September 2018 - no ischemia - Continue to trend troponins - Cardiology consulted Dr. Gomez - Echocardiogram pending to evaluate LV function and exclude wall motion abnormalities - Add aspirin to medical regimen - Continue with statin therapy - Continue with blood pressure control with hydralazine and nifedipine - D-Dimer elevated and w/tachycardia, Pending CTA of chest to exclude pulmonary embolism - Patient has lower extremity swelling. - Will check BNP and venous doppler of BLE #2 Hypertension Uncontrolled -Continue with hydralazine and nifedipine -May need antihypertensive meds titrated if remains hypertensive -Continue to monitor #3 Right Breast Lumpectomy -Continue with Arimidex #4 Hypercalcemia -Hold calcium and vitamin D -Repeat CMP in am FEN -low sodium -monitor electrolytes DVT TEDS Visit type - Emergency Visit Emergency Visit: Yes ED Registration Date: 03/17/19 Care time: The patient presented to the Emergency Department on the above date and was hospitalized for further evaluation of their emergent condition. - New Patient This patient is new to me today: Yes Date on this admission: 03/18/19 - Critical Care Critical Care patient: No
[2019-03-17] MEDS ORDERED: diphenhydrAMINE HCL 25 MG CAPSULE (FP) PO ONE (21:10)
[2019-03-17] MEDS ORDERED: ATORVASTATIN CA 10 MG TABLET (FP) ONE (21:14)
[2019-03-17] MEDS: hydrALAZINE HCL 10 MG TABLET PO SCH (21:17)
[2019-03-17] MEDS ORDERED: ATORVASTATIN CA 10 MG TABLET (FP) PO SCH (22:00)
[2019-03-17] MEDS ORDERED: MONTELUKAST NA 10 MG TABLET PO SCH (22:00)
[2019-03-17 22:53] VITALS: BMI 29.4
[2019-03-18 06:29] LABS: HEMATOCRIT 35.4 % (32.4-45.2); MCH 28.7 pg (25.7-33.7); MCHC 33.9 g/dl (32.0-36.0); MEAN CELL VOLUME 84.7 fl (80-96); PLATELET COUNT 291 K/MM3 (134-434); RBC 4.18 M/mm3 (3.60-5.2); RDW 14.5 % (11.6-15.6); WHITE BLOOD COUNT 6.1 K/mm3 (4.0-10.0)
[2019-03-18] MEDS: hydrALAZINE HCL 10 MG TABLET PO SCH ×2 (06:48→14:04)
[2019-03-18 07:02] LABS: ALBUMIN 3.3 g/dl (3.4-5.0); BILIRUBIN,TOTAL 0.4 mg/dL (0.2-1); BLOOD UREA NITROGEN 22.2 mg/dL (7-18); CALCIUM 10.2 mg/dL (8.5-10.1); CREATININE 0.9 mg/dL (0.55-1.3); MAGNESIUM 1.9 mg/dL (1.8-2.4); N-TERMINAL BNP 93.8 pg/ml (5-450); POTASSIUM 3.2 mmol/L (3.5-5.1); TOT PROT 6.8 g/dl (6.4-8.2)
[2019-03-18] MEDS ORDERED: PT OWN MED DRAWER 7, Y5N ONE (09:34)
[2019-03-18 09:51] VITALS: BP 153/90; PULSE 98; TEMP 97.8
--- NOTE | 2019-03-18 09:59 | EKG ---
Test Reason : Blood Pressure : / mmHG Vent. Rate : 107 BPM Atrial Rate : 107 BPM P-R Int : 204 ms QRS Dur : 088 ms QT Int : 340 ms P-R-T Axes : 064 004 038 degrees QTc Int : 453 ms POOR DATA QUALITY, INTERPRETATION MAY BE ADVERSELY AFFECTED SINUS TACHYCARDIA BIATRIAL ENLARGEMENT LEFT VENTRICULAR HYPERTROPHY INFERIOR INFARCT (CITED ON OR BEFORE 16-JUN-2013) ABNORMAL ECG WHEN COMPARED WITH ECG OF 30-MAY-2016 17:42, NO SIGNIFICANT CHANGE WAS FOUND Confirmed by ZANDRA LOVING, CLINT ([id number]) on 03/18/2019 9:58:44 AM Referred By: Confirmed By:CLINT DE PAZ MD
[2019-03-18] MEDS ORDERED: ANASTROZOLE 1 MG TABLET PO SCH (10:00)
[2019-03-18] MEDS ORDERED: ASPIRIN 81 MG CHEWABLE TABLETS PO SCH (10:00)
[2019-03-18] MEDS ORDERED: NIFEdipine E.R. 90 MG TABLET (FP) PO SCH (10:00)
[2019-03-18] MEDS ORDERED: POTASSIUM CHLORIDE TABS 20 MEQ TABLET.ER (FP) PO ONE (11:00)
--- NOTE | 2019-03-18 11:22 | DS ---
Physical Examination Vital Signs: Vital Signs Temperature 97.8 F 03/18/19 09:00 Pulse Rate 98 H 03/18/19 09:00 Respiratory Rate 18 03/18/19 09:00 Blood Pressure 153/90 03/18/19 09:00 O2 Sat by Pulse Oximetry (%) 99 03/18/19 04:53 AWAKE ALERT NAD Findings/Remarks: D/W CARDIOLOGY, ATYPICAL CHEST PAIN WITH CT CHEST NEGATIVE FOR PE AND CARDIAC MONITORING NORMAL Constitutional: Yes: No Distress Cardiovascular: Yes: WNL Respiratory: Yes: WNL Gastrointestinal: Yes: WNL Labs: CBC, BMP 03/18/19 05:41 03/18/19 05:41 Discharge Summary Problems reviewed: Yes Reason For Visit: CHEST PAIN AT REST Procedures: Principal: CTA CHEST , DOPPLER LEGS Hospital Course: NEGATIVE P.E. AND NEGATIVE DVT DOPPLER OF LEGS, ATYPICAL CHEST PAIN DC HOME F/U OUTPATIENT Plan of Treatment: SEE DR ALMODOVAR AND CARDIOLOGY 2-3 DAYS Condition: Improved - Instructions Diet, Activity, Other Instructions: LOW SALT SEE CARDIOLOGY 2-3 DAYS OUTPATIENT Referrals: Lynn Almodovar MD [Primary Care Provider] - Disposition: HOME - Home Medications Comprehensive Discharge Medication List: Ambulatory Orders Montelukast Na [Singulair -] 10 mg PO HS 03/07/15 Simvastatin [Zocor -] 20 mg PO HS 03/07/15 Nifedipine ER [Procardia XL -] 90 mg PO DAILY tab.er.24 03/09/15 hydrALAZINE HCL [Apresoline -] 10 mg PO TID #90 tablet 03/09/15 Anastrozole [Arimidex -] 1 mg PO DAILY 05/30/16 Aspirin [ASA -] 81 mg PO DAILY 05/30/16 Calcium Carbonate/Vitamin D3 [Calcium 500 + Vit D Caplet] 1 each PO DAILY Prescription Drug Monitoring Program (I-STOP) results: I-STOP not reviewed
--- NOTE | 2019-03-18 12:06 | PN ---
Progress Note, Physician History of Present Illness: The patient is a 78 year old female with a significant PMH of HTN, HLD, pacemaker ([employer]) who presents to the emergency department for intermittent, sharp L sided chest pain, described as pinching sensation that started yesterday at rest. Pt reports 3 episodes of nausea without vomiting yesterday that has since resolved. Pt reports 1 week of congestion. The patient denies palpitations, shortness of breath, headache and dizziness. Denies fever, chills, cough, vomiting, diarrhea and constipation. Denies dysuria, frequency, urgency and hematuria. Allergies: NKDA PCP: Dr. Almodovar Cards: Past medical history Major events No major events recorded Ongoing medical problems Hyperlipidemia Hypertension PPM DDD [employer] 2014 Dr. Jensen pulmonic regurgitation (ECHO 05/12/2014: normal LVEF; moderate [place]) Right Breast CA symptomatic junctional bradycardia 8 seconds pause more than 24 hrs after last dose of atenolol [address] September 2018 - no ischemia - Current Medication List Current Medications: Active Medications Anastrozole (Arimidex -) 1 mg PO DAILY [facility] Last Admin: 03/18/19 10:52 Dose: 1 mg Aspirin (Asa -) 81 mg PO DAILY [facility] Last Admin: 03/18/19 09:43 Dose: 81 mg Atorvastatin Calcium (Lipitor -) 10 mg PO [facility] Last Admin: 03/17/19 21:17 Dose: 10 mg Hydralazine HCl (Apresoline -) 10 mg PO TID [facility] Last Admin: 03/18/19 06:48 Dose: 10 mg Montelukast Sodium (Singulair -) 10 mg PO HS [facility] Last Admin: 03/17/19 22:29 Dose: 10 mg Nifedipine (Procardia Xl -) 90 mg PO DAILY [facility] Last Admin: 03/18/19 09:43 Dose: 90 mg - Objective Vital Signs: Vital Signs Temperature 97.8 F 03/18/19 09:00 Pulse Rate 98 H 03/18/19 09:00 Respiratory Rate 18 03/18/19 09:00 Blood Pressure 153/90 03/18/19 09:00 O2 Sat by Pulse Oximetry (%) 99 03/18/19 04:53 Eyes: Yes: WNL, Conjunctiva Clear, EOM Intact HENT: Yes: WNL, Atraumatic, Normocephalic Neck: Yes: WNL, Supple, Trachea Midline Cardiovascular: Yes: WNL, Regular Rate and Rhythm Respiratory: Yes: WNL, Regular, CTA Bilaterally Gastrointestinal: Yes: WNL, Normal Bowel Sounds Genitourinary: Yes: WNL Musculoskeletal: Yes: WNL Extremities: Yes: WNL Edema: No Integumentary: Yes: WNL Neurological: Yes: WNL, Alert, Oriented ...Motor Strength: WNL Psychiatric: Yes: WNL Labs: CBC, BMP 03/18/19 05:41 03/18/19 05:41 Problem List - Problems (1) Acute kidney failure Code(s): N17.9 - ACUTE KIDNEY FAILURE, UNSPECIFIED (2) Arthritis Code(s): M19.90 - UNSPECIFIED OSTEOARTHRITIS, UNSPECIFIED SITE (3) Bone spur Code(s): M77.9 - ENTHESOPATHY, UNSPECIFIED (4) Dizziness Code(s): R42 - DIZZINESS AND GIDDINESS (5) HTN (hypertension) Code(s): I10 - ESSENTIAL (PRIMARY) HYPERTENSION (6) Hyperglycemia Code(s): R73.9 - HYPERGLYCEMIA, UNSPECIFIED (7) Hyperlipidemia Code(s): E78.5 - HYPERLIPIDEMIA, UNSPECIFIED (8) Junctional bradycardia Code(s): R00.1 - BRADYCARDIA, UNSPECIFIED (9) Shoulder pain, right Code(s): M25.511 - PAIN IN RIGHT SHOULDER Qualifiers: Chronicity: chronic Qualified Code(s): M25.511 - Pain in right shoulder; G89.29 - Other chronic pain (10) Vertigo Code(s): R42 - DIZZINESS AND GIDDINESS Assessment/Plan HTN, HLD, pacemaker ([employer]) who presents to the emergency department for intermittent, sharp L sided chest pain, described as pinching sensation cta neg r/o mi neg pos. d dimers Lext US pending to r/o DVT Plan will f/iu as outp
--- NOTE | 2019-03-18 12:13 | EKG ---
Test Reason : Blood Pressure : / mmHG Vent. Rate : 079 BPM Atrial Rate : 079 BPM P-R Int : 208 ms QRS Dur : 100 ms QT Int : 404 ms P-R-T Axes : 060 -03 031 degrees QTc Int : 463 ms NORMAL SINUS RHYTHM POSSIBLE LEFT ATRIAL ENLARGEMENT LEFT VENTRICULAR HYPERTROPHY INFERIOR INFARCT (CITED ON OR BEFORE 16-JUN-2013) ABNORMAL ECG WHEN COMPARED WITH ECG OF 17-MAR-2019 15:20, NO SIGNIFICANT CHANGE WAS FOUND Confirmed by CLINT DE PAZ MD ([id number]) on 03/18/2019 12:12:35 PM Referred By: ZANDRA JARAMILLO DR Confirmed By:CLINT DE PAZ MD
--- NOTE | 2019-03-18 13:10 | ECHO ---
Name: JOEL RICE Exam:Adult Echocardiogram Study Date: 03/18/2019 08:55 AM Age: 78 yrs Reason For Study: EF Height: 65 in Weight: 175 lb BSA: 1.9 m2 MMode/2D Measurements & Calculations IVSd: 1.8 cm Ao root diam: 2.4 cm LVIDd: 3.7 cm LA dimension: 3.7 cm LVIDs: 2.7 cm ACS: 1.9 cm LVPWd: 1.1 cm EDV(Teich): 57.5 ml LVOT diam: 1.9 cm ESV(Teich): 26.9 ml RV S Ramana: 17.2 cm/sec Doppler Measurements & Calculations MV E max ramana: 64.7 cm/sec Ao V2 max: 125.1 cm/sec MV A max ramana: 100.7 cm/sec Ao max P.3 mmHg MV E/A: 0.64 Ao V2 mean: 91.8 cm/sec MV dec time: 0.13 sec Ao mean P.8 mmHg Ao V2 VTI: 25.5 cm FOX(I,D): 2.5 cm2 FOX(V,D): 1.7 cm2 LV V1 max P.0 mmHg SV(LVOT): 63.6 ml LV V1 mean P.2 mmHg LV V1 max: 71.6 cm/sec LV V1 mean: 53.0 cm/sec LV V1 VTI: 21.8 cm TR max ramana: 199.5 cm/sec PA V2 max: 81.4 cm/sec TR max P.2 mmHg PA max P.7 mmHg PI end-d ramana: 129.2 cm/sec Med Peak E' Ramana: 8.7 cm/sec Med E/e': 7.5 Lat Peak E' Ramana: 9.3 cm/sec Lat E/e': 7.0 Procedure A two-dimensional transthoracic echocardiogram with color flow and Doppler was performed. The study w as technically difficult with many images being suboptimal in quality. Left Ventricle The left ventricular size, thickness and function are normal. The left ventricle is not well visualiz ed. The left ventricular ejection fraction is normal. E/A reversal consistent with but not diagnostic of poor LV compliance. The left ventricular wall motion is normal. Right Ventricle The right ventricle is grossly normal size. The right ventricle is not well visualized. Atria Normal left and right atrial size and function. Mitral Valve There is trivial mitral valve thickening. There is no mitral valve stenosis. There is trace to mild m itral regurgitation. Tricuspid Valve The tricuspid valve is normal in structure and function. There is no tricuspid stenosis. There is Tra ce to mild tricuspid regurgitation. Right ventricular systolic pressure is normal. Aortic Valve The aortic valve is not well visualized. No hemodynamically significant valvular aortic stenosis. No aortic regurgitation is present. Pulmonic Valve The pulmonic valve is not well visualized. Great Vessels The aortic root is normal size. Pericardium/Pleura There is no pericardial effusion. Interpretation Summary The left ventricular size, thickness and function are normal The left ventricular ejection fraction is normal. The left ventricular wall motion is normal. There is trace to mild mitral regurgitation. There is Trace to mild tricuspid regurgitation. Right ventricular systolic pressure is normal. E/A reversal consistent with but not diagnostic of poor LV compliance The study was technically difficult with many images being suboptimal in quality. The left ventricle is not well visualized. The right ventricle is not well visualized. MD Sudhir Gallego 03/18/2019 01:10 PM
== END 2019-03-18 16:57 | disposition home or self-care (01) ==
LOC: JER 15:09 → JERBED 17:35 → J4W 21:25
PROVIDERS: ADMIT Internal Medicine; ATTEND Family Medicine
DX: R07.9 Chest pain, unspecified (principal); I10 Essential (primary) hypertension; I13.10 Hypertensive heart and chronic kidney disease without heart failure, with stage 1 through stage 4 chronic kidney disease, or unspecified chronic kidney disease; N18.9 Chronic kidney disease, unspecified; N17.9 Acute kidney failure, unspecified; E83.52 Hypercalcemia; E78.5 Hyperlipidemia, unspecified; R00.1 Bradycardia, unspecified; R73.9 Hyperglycemia, unspecified; Z95.0 Presence of cardiac pacemaker; M25.511 Pain in right shoulder; G89.29 Other chronic pain; R42 Dizziness and giddiness; M77.9 Enthesopathy, unspecified; M19.90 Unspecified osteoarthritis, unspecified site; Z85.3 Personal history of malignant neoplasm of breast
CPT/HCPCS: 36415; 71045-TC-FY; 71275-TC; 80053; 80061; 82550; 83721; 83735; 83880; 84484; 85025; 85027; 85379; 93005; 93010; 93306-TC; 93970-TC; 99285-25; G0378; Q9967

== ENCOUNTER 2020-08-22 04:35 | Day surgery (SDC) | payer OTHER ==
[2020-08-22] MEDS ORDERED: PROPOFOL 20 ML ONE ×2 (07:14→07:48)
[2020-08-22] MEDS ORDERED: EPHEDRINE SULFATE/0.9% NACL/PF 50 MG/10 ML SYRINGE NR ONE (07:17)
[2020-08-22] MEDS ORDERED: LIDOCAINE HCL 1%, 10 MG/ML (20ML VIAL) ONE (07:20)
[2020-08-22] MEDS ORDERED: BUPIVACAINE HCL/PF 0.25% (2.5MG/ML) 10 ML VIAL ONE (07:21)
[2020-08-22] MEDS ORDERED: BUPIVACAINE HCL/PF 0.5% (5MG/ML) 10 ML VIAL ONE (07:37)
[2020-08-22] MEDS ORDERED: ceFAZolin SODIUM 1 GM VIAL ONE ×2 (07:53)
[2020-08-22] MEDS ORDERED: ceFAZolin SODIUM 1 GM VIAL IVPB ONE (07:55)
[2020-08-22] MEDS ORDERED: DEXAMETHASONE SOD PHOSPHATE 4 MG/1 ML VIAL ONE (07:58)
[2020-08-22] MEDS ORDERED: LIDOCAINE HCL 1%, 10 MG/ML (20ML VIAL) NR ONE (08:10)
[2020-08-22] MEDS ORDERED: BUPIVACAINE HCL/PF 0.5% (5MG/ML) 10 ML VIAL IJ ONE (08:11)
[2020-08-22] MEDS ORDERED: BACITRACIN 50,000 UNITS VIAL NR ONE (08:11)
[2020-08-22] MEDS ORDERED: GLYCOPYRROLATE 0.2 MG/1 ML VIAL ONE (08:14)
[2020-08-22] MEDS ORDERED: ACETAMINOPHEN 325 MG TABLET (FP) PO PRN (08:21)
[2020-08-22] MEDS ORDERED: ONDANSETRON 4 MG/2 ML VIAL IVPUSH PRN (08:21)
[2020-08-22] MEDS ORDERED: oxyCODONE HCL 5 MG TABLET PO PRN ×2 (08:21)
[2020-08-22] MEDS ORDERED: LACTATED RINGERS SOLUTION 1,000 ML IV SCH (08:30)
[2020-08-22 11:09] VITALS: BP 154/73; PULSE 75; TEMP 98.1
== END 2020-08-22 11:05 | disposition home or self-care (01) ==
LOC: JASU-SURG 04:35
PROVIDERS: ATTEND Internal Medicine
PROC: 0JH606Z Insertion of Pacemaker, Dual Chamber into Chest Subcutaneous Tissue and Fascia, Open Approach (ICD-10-PCS; 2020-08-22)
PROC: 0JPT0PZ Removal of Cardiac Rhythm Related Device from Trunk Subcutaneous Tissue and Fascia, Open Approach (ICD-10-PCS; principal; 2020-08-22 07:30)
DX: Z45.010 Encounter for checking and testing of cardiac pacemaker pulse generator [battery] (principal); I49.5 Sick sinus syndrome
CPT/HCPCS: 33228; C1785; 88300-TC; 93005; 93010; 94760

== ENCOUNTER → 2021-06-01 | Day surgery (SDC) | payer OTHER | END | disposition home or self-care (01) | LOC: JRADIR 10:50 | PROVIDERS: ATTEND Family Medicine | PROC: 0G9H3ZX Drainage of Right Thyroid Gland Lobe, Percutaneous Approach, Diagnostic (ICD-10-PCS; principal; 2021-06-01) | DX: E04.1 Nontoxic single thyroid nodule (principal) | CPT/HCPCS: 10005; 76942; 88173; 88305-TC ==